=== PATIENT | male | born 1950 | race Caucasian/White ===

== ENCOUNTER 2018-03-24 08:29 | Day surgery (SDC) | payer OTHER, MEDICARE, BC ==
[~2018-03-24 08:29] MED LIST: LEVE500
[2018-03-24 10:00] LABS: Performing Lab VERACYTE; Test Name FNA
[2018-03-30 10:52] LABS: Result SEE PATHOTH RESULTS
== END 2018-03-24 22:49 | disposition home or self-care (01) ==
LOC: US 08:29
PROVIDERS: Internal Medicine Endocrinology, Diabetes & Metabolism
PROC: 0G9G3ZX Drainage of Left Thyroid Gland Lobe, Percutaneous Approach, Diagnostic (ICD-10-PCS; principal; 2018-03-24)
DX: E04.1 Nontoxic single thyroid nodule (principal)
CPT/HCPCS: 10022; 76942

== ENCOUNTER 2024-06-10 11:59 | Inpatient (IN) | payer OTHER ==
[~2024-06-10] VITALS: Ht 185.4 cm; Wt 87.0 kg
[2024-06-10] VITALS (10 sets, daily range): BP systolic 125–148; BP diastolic 57–79
[2024-06-10 12:15] LABS: Source, Urine Clean Catch
[2024-06-10 12:18] LABS: Appearance, Urine Clear (Clear); Bilirubin, Urine Neg (Neg); Blood, Urine Neg (Neg); Color, Urine Yellow (P-Yellow); Glucose Qualitative, Urine Neg (Neg); Ketones, Urine Neg (Neg); Leukocyte Esterase, Urine Neg (Neg); Nitrite, Urine Neg (Neg); Protein, Urine 1+ (Neg); Urobilinogen, Urine NORM (Normal)
[2024-06-10 12:18] LABS: BASOPHILS ABSOLUTE AUTO 0.04 K/mm3 (0.00-0.23); BASOPHILS PERCENT AUTO 1 % (0-2); EOSINOPHILS ABSOLUTE AUTO 0.28 K/mm3 (0.00-0.68); EOSINOPHILS PERCENT AUTO 6 % (0-6); IMMATURE GRAN ABSOLUTE AUTO 0.02 K/mm3 (0.00-0.10); IMMATURE GRAN PERCENT AUTO 0 % (0-1); LYMPHOCYTES ABSOLUTE AUTO 0.93 K/mm3 (0.84-5.20); LYMPHOCYTES PERCENT AUTO 20 % (21-46); MONOCYTES ABSOLUTE AUTO 0.32 K/mm3 (0.16-1.47); MONOCYTES PERCENT AUTO 7 % (4-13); Mean Corpuscular HGB 32.1 pg (26.0-34.0); Mean Corpuscular HGB Conc 34.5 g/dL (31.5-36.5); Mean Corpuscular Volume 93 fL (80-100); Mean Platelet Volume 11.7 fL (9.1-12.4); NEUTROPHILS ABSOLUTE AUTO 2.96 K/mm3 (1.96-9.15); NEUTROPHILS PERCENT AUTO 65 % (41-73); Platelet Count 122 K/mm3 (150-400); RDW Coefficient Variation 12.5 % (11.7-14.2); RDW Standard Deviation 42.5 fL (35.1-46.3); Red Blood Cell Count 1.84 M/mm3 (4.30-5.90); White Blood Cell Count 4.55 K/mm3 (4.00-11.30)
[2024-06-10 12:21] LABS: Hematocrit 17.1 % (37.0-53.0); Hemoglobin 5.9 g/dL (13.5-17.5)
[2024-06-10 12:48] LABS: Albumin, Blood 3.7 g/dL (3.4-5.0); Albumin/Globulin Ratio 1.3 (0.8-1.8); Bilirubin, Total 0.3 mg/dL (0.1-1.0); Calcium, Blood 8.8 mg/dL (8.5-10.1); Creatinine, Blood 5.05 mg/dL (0.60-1.20); Globulin, Blood 2.8 g/dL (2.2-4.0); Potassium, Blood 4.8 mmol/L (3.5-5.5); Total Protein, Blood 6.5 g/dL (6.4-8.2)
[2024-06-10] MEDS ORDERED: NS 1,000 ML IV SCH ×2 (15:35→17:00)
[2024-06-10] MEDS ORDERED: FLU VACC TS2024-25(6MOS UP)/PF 45 MCG/0.5 ML SYRINGE IM SCH (16:15)
[2024-06-10] MEDS ORDERED: Ondansetron HCl 2 MG / ML 2ML Vial IV PRN (16:15)
[2024-06-10] MEDS ORDERED: FOSAMAX70 MG PO (16:22)
[2024-06-10] MEDS ORDERED: AMLO10 PO (16:23)
[2024-06-10] MEDS ORDERED: CELEXA40 M1 PO (16:24)
[2024-06-10] MEDS ORDERED: LAMO100 PO (16:25)
[2024-06-10] MEDS ORDERED: Keppra PO ×2 (16:27→16:28)
[2024-06-10] MEDS ORDERED: Synthroid/Levothroid PO (16:29)
[2024-06-10 16:56] LABS: IMMATURE RETIC FRACTION 3.6 % (2.3-16.0); RETIC HGB EQUIVALENT 35.5 pg (28.20-36.60); RETICULOCYTE ABSOLUTE 0.0146 M/mm3 (0.0200-0.1100); RETICULOCYTE COUNT PERCENT 0.71 % (0.50-2.50)
[2024-06-10] MEDS ORDERED: NS 500 ML IV SCH (17:05)
[2024-06-10 17:17] LABS: Percent Saturation 65.9 % (20.0-50.0)
[2024-06-10] MEDS ORDERED: Sodium Bicarb 8.4% Inj 150 MEQ in Dextrose 5% 1,000 ML IV SCH (17:20)
[2024-06-10 17:29] LABS: Magnesium, Blood 2.4 mg/dL (1.6-2.4)
--- NOTE | 2024-06-10 18:36 | NUR ---
PT IS A NEW ADMIT THIS SHIFT. THE PT ARRIVED TO PCU 17 VIA GURNEY AND AMBULATED OFF THE GURNEY TO THE BATHROOM THEN INTO BED. THE PT IS SBA D/T LINE MANAGEMENT. HE IS A&OX4, AND IS ABLE TO MAKE HIS NEEDS KNOWN. THE PT CURRENTLY HAS 1 OF 2 UNITS OF BLOOD INFUSING. BLOOD CONSENT WAS DONE IN THE ER AND IT IS ON THE PT'S CHART. DR. YANG CAME TO BEDSIDE AND ORDERED ARENESP, AND AN IRON DEFICENCY CHECK. DR. YANG WANTS TO BE NOTIFIED WITH THE IRON DEFICENCY RESULT. THE PT IS SITTING UP IN THE BED AND EATING DINNER. HIS IS AT BEDSIDE. SHE WILL BRING IN HIS MORNING DOSE OF KEPPRA BECAUSE THE HOSPITAL DOSE NOT CARRY THE PT'S DOSE. SEE NOTES FOR UPDATES.
[2024-06-10] MEDS ORDERED: Darbepoetin Alfa in Polysorbat 25 MCG/0.42 ML Syringe SC SCH (19:00)
[2024-06-10] MEDS ORDERED: LevETIRAcetam 500 MG Tab PO SCH (21:00)
[2024-06-11] VITALS (13 sets, daily range): BP systolic 111–132; BP diastolic 56–76
[2024-06-11 00:06] LABS: Hematocrit 19.7 % (37.0-53.0); Hemoglobin 6.9 g/dL (13.5-17.5)
[2024-06-11 00:31] LABS: International Normalized Ratio 0.99; Prothrombin Time Results 10.6 Sec (9.7-11.5)
--- NOTE | 2024-06-11 05:40 | NUR ---
PT A&OX4. VSS ON RA. NO C/O PAIN. AMBULATING TO BATHROOM WITH SBA. PT RECIEVED SECOND BAG OF PRBCs AT START OF SHIFT. HGB DRAW RESULTED TO 6.9. AWARE. ONE MORE UNIT ORDERED AND GIVEN. AWAITING RESULTS AT THIS TIME. CONTINUOUS FLUIDS RUNNING @ 100CC/HR. NO FURTHER QUESTIONS OR CONCERNS AT THIS TIME. WILL CONTINUE TO MONITOR.
[2024-06-11] MEDS ORDERED: Levothyroxine Sodium 0.175 MG TAB PO SCH (06:00)
[2024-06-11 06:17] LABS: Hematocrit 20.9 % (37.0-53.0); Hemoglobin 7.5 g/dL (13.5-17.5)
[2024-06-11 06:34] LABS: Albumin, Blood 3.3 g/dL (3.4-5.0); Anion Gap 12 mmol/L (3-11); Blood Urea Nitrogen 78 mg/dL (8-24); CO2, Blood 21 mmol/L (21-32); Calcium, Blood 8.3 mg/dL (8.5-10.1); Chloride, Blood 115 mmol/L (98-108); Creatinine, Blood 4.86 mg/dL (0.60-1.20); Glomerular Filtration Rate 12 (60-); Glucose, Blood 102 mg/dL (70-99); Magnesium, Blood 2.1 mg/dL (1.6-2.4); Phosphorus, Blood 4.4 mg/dL (2.5-4.9); Potassium, Blood 4.5 mmol/L (3.5-5.5); Sodium, Blood 143 mmol/L (136-145)
[2024-06-11] MEDS ORDERED: Sodium Bicarb 8.4% Inj 150 MEQ in Dextrose 5% 1,000 ML IV SCH (06:40)
[2024-06-11] MEDS ORDERED: AmLODIPine Besylate 5 MG Tab PO SCH (09:00)
[2024-06-11] MEDS ORDERED: Misc. Tablet PO SCH (09:00)
[2024-06-11] MEDS ORDERED: LamoTRIgine 100 MG Tab PO SCH (09:00)
[2024-06-11] MEDS ORDERED: levETIRAcetam 750 MG TABLET PO SCH (10:24)
[2024-06-11 15:28] LABS: Hematocrit 21.4 % (37.0-53.0); Hemoglobin 7.5 g/dL (13.5-17.5)
--- NOTE | 2024-06-11 17:37 | NUR ---
TRANSFER SUMMARY: PT ARRIVED FROM U 17 @ 1640, INDEPENDENTLY TRANSFERRED FROM WHEELCHAIR INTO BED. CLEAR LUNGS, IN GOOD MOOD AND AFFECT. ORIENTED TO ROOM AND CALL LIGHT. CALLS APPROPRIATELY BED IN LOWEST POSITION. CONTINUING CARE.
--- NOTE | 2024-06-11 17:46 | NUR ---
SHIFT SUMMARY: PT AOX4 AND VERY PLEASANT. INDEPENDENT AROUND THE ROOM AND CALLS APPROPRIATELY. FAMILY CAME TO VISIT NAD HAVE LEFT. PT EATING DINNER AND RESTING WITH BICARB RUNNING THROUGH THE IV. BED IN LOWEST POSITON, CALL LIGHT IN REACH. CONTINUIING CARE.
--- NOTE | 2024-06-12 03:53 | NUR ---
SHIFT SUMMARY: PT IS A 73 YO FULL CODE WHO WAS ADMITTED FOR ANEMIA. PT IS A&OX4 AND IND WITH SBA ASIST AT TIMES TO THE RESTROOM. PT STARTED THE SHIFT WITH JONATAN AT BEDSIDE. PT TALKED TO ME ABOUT GRANDKIDS AND HAS BEEN PLEASANT AND ON CONTINUOUS BICARB DRIP AT 75 ML/HR. PT HAS NO BLOOD IN URINE OR STOOL,PT WAS GIVEN 3 UNITS OF PRBC ON 06/11.CALL LIGHT IN REACH
[2024-06-12 04:02] VITALS: BP 128/69
[2024-06-12 05:16] LABS: Hemoglobin 7.4 g/dL (13.5-17.5)
[2024-06-12 05:50] LABS: Anion Gap 11 mmol/L (3-11); Blood Urea Nitrogen 80 mg/dL (8-24); Bun/Creatinine Ratio 17.1 (12.0-20.0); CO2, Blood 26 mmol/L (21-32); Calcium, Blood 8.3 mg/dL (8.5-10.1); Chloride, Blood 111 mmol/L (98-108); Creatinine, Blood 4.69 mg/dL (0.60-1.20); Glomerular Filtration Rate 12 (60-); Glucose, Blood 101 mg/dL (70-99); Magnesium, Blood 1.8 mg/dL (1.6-2.4); Phosphorus, Blood 3.8 mg/dL (2.5-4.9); Potassium, Blood 3.9 mmol/L (3.5-5.5); Sodium, Blood 144 mmol/L (136-145)
[2024-06-12 07:45] VITALS: BP 123/69
[2024-06-12 12:32] LABS: BASOPHILS ABSOLUTE AUTO 0.05 K/mm3 (0.00-0.23); BASOPHILS PERCENT AUTO 1 % (0-2); EOSINOPHILS ABSOLUTE AUTO 0.32 K/mm3 (0.00-0.68); EOSINOPHILS PERCENT AUTO 7 % (0-6); Hematocrit 21.5 % (37.0-53.0); Hemoglobin 7.6 g/dL (13.5-17.5); IMMATURE GRAN ABSOLUTE AUTO 0.01 K/mm3 (0.00-0.10); IMMATURE GRAN PERCENT AUTO 0 % (0-1); LYMPHOCYTES ABSOLUTE AUTO 0.85 K/mm3 (0.84-5.20); LYMPHOCYTES PERCENT AUTO 20 % (21-46); MONOCYTES ABSOLUTE AUTO 0.43 K/mm3 (0.16-1.47); MONOCYTES PERCENT AUTO 10 % (4-13); Mean Corpuscular HGB 31.1 pg (26.0-34.0); Mean Corpuscular HGB Conc 35.3 g/dL (31.5-36.5); Mean Platelet Volume 11.9 fL (9.1-12.4); NEUTROPHILS ABSOLUTE AUTO 2.66 K/mm3 (1.96-9.15); NEUTROPHILS PERCENT AUTO 62 % (41-73); Platelet Count 114 K/mm3 (150-400); RDW Coefficient Variation 13.7 % (11.7-14.2); Red Blood Cell Count 2.44 M/mm3 (4.30-5.90); White Blood Cell Count 4.32 K/mm3 (4.00-11.30)
[2024-06-12 12:33] LABS: Mean Corpuscular Volume 88 fL (80-100)
--- NOTE | 2024-06-12 14:10 | NUR ---
PT IS A&OX4, VSS AND ON RA. NO CHANGES IN STATUS FOR PT. PT HAS NO QUESTIONS OR CONCERNS AT THIS TIME
[2024-06-12 16:01] VITALS: BP 121/58
[2024-06-12 19:38] VITALS: BP 132/78
[2024-06-12] MEDS ORDERED: LevETIRAcetam 500 MG Tab PO SCH (21:00)
[2024-06-12 22:48] LABS: ERYTHROPOIETIN 6 mU/mL (4-27)
[2024-06-13 00:59] LABS: HAPTOGLOBIN 118 mg/dL (30-200)
[2024-06-13 04:24] VITALS: BP 118/52
[2024-06-13 05:01] LABS: Hematocrit 20.8 % (37.0-53.0); Hemoglobin 7.2 g/dL (13.5-17.5)
[2024-06-13 05:15] LABS: Anion Gap 11 mmol/L (3-11); Blood Urea Nitrogen 69 mg/dL (8-24); CO2, Blood 29 mmol/L (21-32); Calcium, Blood 8.1 mg/dL (8.5-10.1); Chloride, Blood 107 mmol/L (98-108); Glomerular Filtration Rate 13 (60-); Glucose, Blood 106 mg/dL (70-99); Magnesium, Blood 1.8 mg/dL (1.6-2.4); Phosphorus, Blood 4.1 mg/dL (2.5-4.9); Potassium, Blood 3.8 mmol/L (3.5-5.5); Sodium, Blood 143 mmol/L (136-145)
--- NOTE | 2024-06-13 06:30 | NUR ---
SHIFT SUMMARY: A&OX4, VERY PLEASANT AND APPRECIATIVE. VSS ON RA. DENIES PAIN. PT IS UP INDEPENDENTLY AD CARRI IN ROOM/BR. VOIDING IN TOILET. NO BM THIS SHIFT. TOLERATING A REGULAR DIET. BED IN LOWEST POSITION, CALL LIGHT WITHIN REACH. CALLS APPROPRIATELY AND IS ABLE TO ADVOCATE NEEDS EFFECTIVELY.
[2024-06-13 07:11] VITALS: BP 123/56
[2024-06-13] MEDS ORDERED: NS 1,000 ML IV SCH (07:35)
[2024-06-13 15:28] VITALS: BP 120/64
[2024-06-13 18:12] LABS: LAMOTRIGINE 5.5 ug/mL (3.0-15.0)
--- NOTE | 2024-06-13 18:12 | NUR ---
NO CHANGES WITH PT
[2024-06-13 19:14] VITALS: BP 129/56
[2024-06-14] VITALS (7 sets, daily range): BP systolic 122–146; BP diastolic 59–79
[2024-06-14 05:20] LABS: Hemoglobin 6.9 g/dL (13.5-17.5)
[2024-06-14 05:53] LABS: Anion Gap 11 mmol/L (3-11); Blood Urea Nitrogen 64 mg/dL (8-24); Bun/Creatinine Ratio 13.6 (12.0-20.0); CO2, Blood 27 mmol/L (21-32); Calcium, Blood 8.3 mg/dL (8.5-10.1); Chloride, Blood 109 mmol/L (98-108); Creatinine, Blood 4.71 mg/dL (0.60-1.20); Glomerular Filtration Rate 12 (60-); Glucose, Blood 91 mg/dL (70-99); Magnesium, Blood 1.7 mg/dL (1.6-2.4); Phosphorus, Blood 4.4 mg/dL (2.5-4.9); Potassium, Blood 4.3 mmol/L (3.5-5.5); Sodium, Blood 143 mmol/L (136-145)
--- NOTE | 2024-06-14 07:48 | NUR ---
SHIFT SUMMARY: A&OX4, VERY PLEASANT AND APPRECIATIVE. VSS ON RA. DENIES PAIN. PT IS UP INDEPENDENTLY AD CARRI IN ROOM/BR. TOOK A WALK IN THE HALLS EARLY THIS MORNING. VOIDING IN TOILET. NO BM THIS SHIFT. 24 HOUR URINE COLLECTION STARTED THIS SHIFT AT 1900. TOLERATING A REGULAR DIET. BED IN LOWEST POSITION, CALL LIGHT WITHIN REACH. CALLS APPROPRIATELY AND IS ABLE TO ADVOCATE NEEDS EFFECTIVELY.
[2024-06-14] MEDS ORDERED: LORazepam 2 MG/ML 1ML Injection IV PRN (11:10)
[2024-06-14 13:22] LABS: Hematocrit 23.5 % (37.0-53.0); Hemoglobin 8.2 g/dL (13.5-17.5)
--- NOTE | 2024-06-14 15:53 | NUR ---
PT RECIEVED 1 UNIT OF PRBC'S. HGB IS 8.7 WITH NO CHANGE IS STATUS OR VS. PT ON RA. NO OTHER CHANGES, PT HAS NO QUESTIONS OR CONCERNS.
[2024-06-14] MEDS ORDERED: LevETIRAcetam 500 MG Tab PO SCH (21:00)
[2024-06-14 21:21] LABS: Protein, Urine Quantitative 18.9 mg/dL (0.0-11.9)
[2024-06-14 23:52] LABS: Eosinophils-Raw #,Urine 0; White Blood Cells Urine 0-2 /hpf (0-5)
[2024-06-15 04:53] VITALS: BP 122/55
[2024-06-15 05:31] LABS: Hematocrit 22.3 % (37.0-53.0); Hemoglobin 7.6 g/dL (13.5-17.5)
[2024-06-15 05:56] LABS: Albumin, Blood 2.9 g/dL (3.4-5.0); Anion Gap 12 mmol/L (3-11); Blood Urea Nitrogen 64 mg/dL (8-24); Bun/Creatinine Ratio 14.4 (12.0-20.0); CO2, Blood 23 mmol/L (21-32); Calcium, Blood 8.3 mg/dL (8.5-10.1); Chloride, Blood 111 mmol/L (98-108); Creatinine, Blood 4.45 mg/dL (0.60-1.20); Glomerular Filtration Rate 13 (60-); Glucose, Blood 91 mg/dL (70-99); Magnesium, Blood 1.7 mg/dL (1.6-2.4); Phosphorus, Blood 4.4 mg/dL (2.5-4.9); Potassium, Blood 4.1 mmol/L (3.5-5.5); Sodium, Blood 142 mmol/L (136-145)
--- NOTE | 2024-06-15 06:52 | NUR ---
SHIFT SUMMARY: A&OX4, VERY PLEASANT AND APPRECIATIVE. VSS ON RA. DENIES PAIN. PT IS UP INDEPENDENTLY AD CARRI IN ROOM/BR. VOIDING INDEPENDENTLY IN URINAL. NO BM THIS SHIFT. TOLERATING A REGULAR DIET. BED IN LOWEST POSITION, CALL LIGHT WITHIN REACH. CALLS APPROPRIATELY AND IS ABLE TO ADVOCATE NEEDS EFFECTIVELY.
[2024-06-15 07:24] VITALS: BP 133/69
[2024-06-15] MEDS ORDERED: Pramoxine HCl/Zinc Acetate Lotion 177 ML TOP PRN (10:30)
[2024-06-15] MEDS ORDERED: DiphenhydrAMINE HCL/Zinc Acet Cream TOP PRN (10:55)
[2024-06-15 13:02] LABS: BASOPHILS ABSOLUTE AUTO 0.03 K/mm3 (0.00-0.23); BASOPHILS PERCENT AUTO 1 % (0-2); EOSINOPHILS ABSOLUTE AUTO 0.35 K/mm3 (0.00-0.68); EOSINOPHILS PERCENT AUTO 8 % (0-6); Hematocrit 23.9 % (37.0-53.0); Hemoglobin 8.3 g/dL (13.5-17.5); IMMATURE GRAN ABSOLUTE AUTO 0.01 K/mm3 (0.00-0.10); IMMATURE GRAN PERCENT AUTO 0 % (0-1); LYMPHOCYTES ABSOLUTE AUTO 0.74 K/mm3 (0.84-5.20); LYMPHOCYTES PERCENT AUTO 18 % (21-46); MONOCYTES ABSOLUTE AUTO 0.34 K/mm3 (0.16-1.47); MONOCYTES PERCENT AUTO 8 % (4-13); Mean Corpuscular HGB 31.3 pg (26.0-34.0); Mean Corpuscular HGB Conc 34.7 g/dL (31.5-36.5); Mean Corpuscular Volume 90 fL (80-100); Mean Platelet Volume 11.7 fL (9.1-12.4); NEUTROPHILS PERCENT AUTO 65 % (41-73); Platelet Count 105 K/mm3 (150-400); RDW Standard Deviation 45.4 fL (35.1-46.3); Red Blood Cell Count 2.65 M/mm3 (4.30-5.90); White Blood Cell Count 4.17 K/mm3 (4.00-11.30)
[2024-06-15 13:41] LABS: Bun/Creatinine Ratio 13.9 (12.0-20.0); Calcium, Blood 8.4 mg/dL (8.5-10.1); Creatinine, Blood 4.53 mg/dL (0.60-1.20); Potassium, Blood 4.5 mmol/L (3.5-5.5)
[2024-06-15] MEDS ORDERED: LEVE500 PO (14:40)
--- NOTE | 2024-06-15 16:08 | NUR ---
DISCHARGE NOTE PT DISCHARGED HOME AT 1605. PT AND PT'S PROVIDED W/ VERBAL AND WRITTEN INSTRUCTIONS AND REPORTED UNDERSTANDING. PT A&OX4, VSS, AMB IND, TOLERATING PO, VOIDING, AND DENIED PAIN. EMIGDIO SCRIPT GIVEN. BELONGINGS WERE RETURNED. PT ESCOURTED OUT BY HIS .
[2024-06-16 04:47] LABS: GBM, IGG MULTIPLEX BEAD ASSAY 0 AU/mL (0-19); MYELOPEROXIDASE (MPO) AB,IGG 0 AU/mL (0-19); SERINE PROTEINASE 3 PR3 AB,IGG 0 AU/mL (0-19)
[2024-06-17 10:29] LABS: ANTINUCLEAR AB (ANA),HEP-2,IGG <1:80 (<1:80)
[2024-06-20 17:49] LABS: ALBUMIN %,URINE 25.2 %; ALPHA-1 %,URINE 21.8 %; ALPHA-2 %,URINE 20.1 %; BETA GLOBULIN %,URINE 25.9 %; HOURS COLLECTED 24 hr; TOTAL VOLUME 1500 mL
== END 2024-06-15 16:12 | disposition home or self-care (01) | DRG 683 ==
LOC: ER 11:59 → PCU 16:12 → MEDS 16:12 → PCU 17:32 → MEDS 06-11 17:12
PROVIDERS: Emergency Medicine; Internal Medicine Nephrology; Nurse Practitioner Acute Care; Student in an Organized Health Care Education/Training Program; ADMIT Family Medicine
PROC: 30233N1 Transfusion of Nonautologous Red Blood Cells into Peripheral Vein, Percutaneous Approach (ICD-10-PCS; principal; 2024-06-10)
DX: N17.9 Acute kidney failure, unspecified (principal); C70.0 Malignant neoplasm of cerebral meninges; E87.20 Acidosis, unspecified; G40.909 Epilepsy, unspecified, not intractable, without status epilepticus; E03.9 Hypothyroidism, unspecified; F41.9 Anxiety disorder, unspecified; F32.A Depression, unspecified; M81.0 Age-related osteoporosis without current pathological fracture; I12.9 Hypertensive chronic kidney disease with stage 1 through stage 4 chronic kidney disease, or unspecified chronic kidney disease; N18.9 Chronic kidney disease, unspecified; D63.1 Anemia in chronic kidney disease; R63.4 Abnormal weight loss; E86.9 Volume depletion, unspecified; Z68.25 Body mass index [BMI] 25.0-25.9, adult; Z87.891 Personal history of nicotine dependence; Z79.890 Hormone replacement therapy; Z79.899 Other long term (current) drug therapy; Z85.46 Personal history of malignant neoplasm of prostate; Z90.79 Acquired absence of other genital organ(s)
CPT/HCPCS: 36415; 36430; 71045; 71250; 74176; 76770; 80048; 80053; 80069; 80175; 81050; 82550; 82607; 82668; 82728; 82746; 83010; 83516; 83540; 83550; 83615; 83735; 84156; 84443; 84484; 85014; 85018; 85025; 85045; 85060; 85610; 86039; 86334; 86335; 86850; 86900; 86901; 86923; 87205; 93005; 93010; 93306; 97110; 97112; 97161; 97530; 99285-25; A9270; J0881; J7030; J7070; P9016

== ENCOUNTER → 2024-06-20 | Outpatient (CLI) | payer OTHER ==
[~2024-06-20] MED LIST changes: +AMLO10 PO; +CELEXA40 M1 PO; +FOSAMAX70 MG PO; +Keppra PO; +LAMO100 PO; +LEVE500 PO; +Synthroid/Levothroid PO
[2024-06-20 13:15] LABS: Creatinine Urine 63.1 mg/dL (27.00-270.00); Microalbumin, Urine Quant. 28.6 mg/L (0.000-20.000); Protein, Urine Quantitative 24.8 mg/dL (0.0-11.9)
== END | disposition home or self-care (01) ==
LOC: LAB 10:28 → LAB SHORT 10:28
PROVIDERS: Internal Medicine Nephrology
DX: N18.4 Chronic kidney disease, stage 4 (severe) (principal); D63.1 Anemia in chronic kidney disease; N25.81 Secondary hyperparathyroidism of renal origin; E78.00 Pure hypercholesterolemia, unspecified; E29.1 Testicular hypofunction; R76.9 Abnormal immunological finding in serum, unspecified; R94.5 Abnormal results of liver function studies; R94.6 Abnormal results of thyroid function studies
CPT/HCPCS: 81050; 82043; 82570; 84156